=== PATIENT | female | born 1970 | race Caucasian/White ===

== ENCOUNTER 2024-01-14 06:00 | Day surgery (SDC) | payer OTHER, BC ==
[2024-01-12 15:15] VITALS: BMI 43.1
[2024-01-14 12:33] VITALS: TEMP 98.2
[2024-01-14 12:50] VITALS: RESP 23
[2024-01-14 13:09] VITALS: BP 121/68; PULSE 71
== END 2024-01-14 13:15 | disposition home or self-care (01) ==
LOC: JASU-ENDO 06:00
PROVIDERS: ATTEND Internal Medicine Gastroenterology
PROC: 0DBP8ZX Excision of Rectum, Via Natural or Artificial Opening Endoscopic, Diagnostic (ICD-10-PCS; 2024-01-14)
PROC: 0DBN8ZX Excision of Sigmoid Colon, Via Natural or Artificial Opening Endoscopic, Diagnostic (ICD-10-PCS; 2024-01-14)
PROC: 0DBL8ZX Excision of Transverse Colon, Via Natural or Artificial Opening Endoscopic, Diagnostic (ICD-10-PCS; principal; 2024-01-14 12:00)
DX: Z12.11 Encounter for screening for malignant neoplasm of colon (principal); C20 Malignant neoplasm of rectum; K63.5 Polyp of colon; K64.8 Other hemorrhoids; Z83.719 Family history of colon polyps, unspecified
CPT/HCPCS: 88305-TC; 88341-TC; 88342-TC

== ENCOUNTER 2024-05-04 03:47 | Day surgery (SDC) | payer OTHER, BC ==
[2024-05-01 12:48] VITALS: BMI 41.3
[2024-05-04] MEDS ORDERED: ONDANSETRON 4 MG/2 ML VIAL IVPUSH PRN (08:35)
[2024-05-04] MEDS ORDERED: oxyCODONE HCL 5 MG TABLET PO PRN (08:35)
[2024-05-04] MEDS ORDERED: ACETAMINOPHEN 500 MG TABLET (FP) PO ONE (08:36)
[2024-05-04] MEDS ORDERED: HEPARIN NA (PORCINE) 5,000 UNITS/ML 1ML VIAL ONE (10:29)
[2024-05-04] MEDS ORDERED: LIDOCAINE HCL 1%, 10 MG/ML (20ML VIAL) ONE (10:29)
[2024-05-04] MEDS ORDERED: MIDAZOLAM HCL 2 MG/2 ML SINGLE DOSE VIAL ONE (11:01)
[2024-05-04] MEDS: ceFAZolin SODIUM 1 GM VIAL IVPB ONE (11:07)
[2024-05-04] MEDS ORDERED: ceFAZolin SODIUM 1 GM VIAL ONE (11:07)
[2024-05-04] MEDS: LIDOCAINE 1% P/F 10 MG/ML VIAL INF ONE (11:26)
[2024-05-04] MEDS ORDERED: ACETAMINOPHEN 325 MG TABLET (FP) PO PRN (11:43)
[2024-05-04 13:44] VITALS: RESP 16
[2024-05-04 14:23] VITALS: BP 130/80; PULSE 72; TEMP 97.5
== END 2024-05-04 14:30 | disposition home or self-care (01) ==
LOC: JASU-SURG 03:47
PROVIDERS: ATTEND Surgery
PROC: 02HV33Z Insertion of Infusion Device into Superior Vena Cava, Percutaneous Approach (ICD-10-PCS; 2024-05-04)
PROC: 0JH63XZ Insertion of Tunneled Vascular Access Device into Chest Subcutaneous Tissue and Fascia, Percutaneous Approach (ICD-10-PCS; principal; 2024-05-04 09:30)
DX: C20 Malignant neoplasm of rectum (principal)
CPT/HCPCS: 71045-TC-FY; 76000-TC-FY; 94760; J1644

== ENCOUNTER 2024-05-09 08:51 | Day surgery (SDC) | payer OTHER, BC ==
[2024-05-09 09:45] LABS: BASO % 0.7 % (0-2.0); EOS % 1.7 % (0-4.5); HEMATOCRIT 38.1 % (32.4-45.2); HEMOGLOBIN 13.2 GM/dL (10.7-15.3); LYMPH % 15.1 % (8-40); MCHC 34.5 g/dl (32.0-36.0); MEAN CELL VOLUME 95.4 fl (80-96); MEAN PLT VOLUME 6.6 fl (7.5-11.1); MONO % 6.3 % (3.8-10.2); NEUT % 76.2 % (42.8-82.8); PLATELET COUNT 341 10^3/uL (134-434); RDW 15.7 % (11.6-15.6)
[2024-05-09 09:59] LABS: POTASSIUM 4.7 mmol/L (3.5-5.1)
[2024-05-09 10:04] LABS: CALCIUM 9.1 mg/dL (8.5-10.1)
[2024-05-09 10:05] LABS: ALBUMIN 3.5 g/dl (3.4-5.0); BLOOD UREA NITROGEN 19.7 mg/dL (7-18); MAGNESIUM 2.4 mg/dL (1.8-2.4)
[2024-05-09 10:08] LABS: CREATININE 0.7 mg/dL (0.55-1.3)
[2024-05-09 10:09] LABS: BILIRUBIN,TOTAL 0.5 mg/dL (0.2-1); TOT PROT 6.6 g/dl (6.4-8.2)
[2024-05-09] MEDS: SODIUM CHLORIDE 250 ML IV ONE (10:42)
[2024-05-09] MEDS: PALONOSETRON HCL 0.25 MG/5 ML VIAL IVPUSH ONE (10:47)
[2024-05-09] MEDS: DEXAMETHASONE SODIUM PHOSPHATE 10 MG in SODIUM CHLORIDE 50 ML IVPB ONE (10:48)
[2024-05-09] MEDS: LEUCOVORIN INJECTION - 844 MG in DEXTROSE 5%-WATER - 250 ML IVPB ONE (11:35)
[2024-05-09] MEDS: OXALIplatin 180 MG in DEXTROSE 5%-WATER - 500 ML IV ONE (11:36)
[2024-05-09] MEDS: FLUOROURACIL 500 MG/10 ML VIAL IVPUSH ONE (13:49)
[2024-05-09] MEDS: PORTA CATH FLUSH 10 ML IVPUSH PRN (13:49)
[2024-05-09] MEDS: FLUOROURACIL 5,075 MG in SODIUM CHLORIDE 36.5 ML CP ONE (13:49)
[2024-05-09] MEDS: diphenhydrAMINE HCL 25 MG CAPSULE (FP) PO ONE (13:49)
[2024-05-09 18:03] VITALS: BP 123/81; PULSE 73; RESP 20; TEMP 97.8
== END 2024-05-09 14:15 | disposition home or self-care (01) ==
LOC: JONCCHEMO 08:51 → J7W 08:59 → JONCCHEMO 14:15
PROVIDERS: ATTEND Internal Medicine Hematology & Oncology
DX: Z51.11 Encounter for antineoplastic chemotherapy (principal); C20 Malignant neoplasm of rectum
CPT/HCPCS: 36415; 80053; 83735; 85025; 96367; 96368; 96375; 96411; 96413; 96415; G0498; J9190; J9263

== ENCOUNTER 2024-05-23 08:59 | Day surgery (SDC) | payer OTHER, BC ==
[2024-05-23] MEDS: SODIUM CHLORIDE 250 ML IV ONE (09:32)
[2024-05-23] MEDS: PALONOSETRON HCL 0.25 MG/5 ML VIAL IVPUSH ONE (09:52)
[2024-05-23] MEDS: DEXAMETHASONE SODIUM PHOSPHATE 10 MG in SODIUM CHLORIDE 50 ML IVPB ONE (09:52)
[2024-05-23] MEDS ORDERED: LORazepam 2 MG/ML SDV VIAL ONE (10:10)
[2024-05-23] MEDS: LEUCOVORIN INJECTION - 844 MG in DEXTROSE 5%-WATER - 250 ML IVPB ONE (10:10)
[2024-05-23] MEDS: OXALIplatin 180 MG in DEXTROSE 5%-WATER - 500 ML IV ONE (10:10)
[2024-05-23] MEDS: FLUOROURACIL 500 MG/10 ML VIAL IVPUSH ONE (12:44)
[2024-05-23] MEDS: FLUOROURACIL 5,075 MG in SODIUM CHLORIDE 36.5 ML CP ONE (12:45)
[2024-05-23 17:00] VITALS: BP 106/63; PULSE 69; RESP 20; TEMP 98.1
[2024-05-23] MEDS ORDERED: PORTA CATH FLUSH 10 ML IVPUSH PRN (17:00)
== END 2024-05-23 13:00 | disposition home or self-care (01) ==
LOC: JONCCHEMO 08:59 → J7W 09:00 → JONCCHEMO 13:00
PROVIDERS: ATTEND Internal Medicine Hematology & Oncology
PROC: 3E04305 Introduction of Other Antineoplastic into Central Vein, Percutaneous Approach (ICD-10-PCS; principal; 2024-05-23)
PROC: 3E043GC Introduction of Other Therapeutic Substance into Central Vein, Percutaneous Approach (ICD-10-PCS; 2024-05-23)
PROC: 3E04305 Introduction of Other Antineoplastic into Central Vein, Percutaneous Approach (ICD-10-PCS; 2024-05-23)
DX: Z51.11 Encounter for antineoplastic chemotherapy (principal); C20 Malignant neoplasm of rectum
CPT/HCPCS: 96367; 96368; 96409; 96413; 96417; G0498; J9190; J9263

== ENCOUNTER 2024-06-06 09:15 | Day surgery (SDC) | payer OTHER, BC ==
[2024-06-06] MEDS: SODIUM CHLORIDE 250 ML IV ONE (09:48)
[2024-06-06] MEDS: PALONOSETRON HCL 0.25 MG/5 ML VIAL IVPUSH ONE (10:28)
[2024-06-06] MEDS: DEXAMETHASONE SODIUM PHOSPHATE 10 MG in SODIUM CHLORIDE 50 ML IVPB ONE (10:29)
[2024-06-06] MEDS: LEUCOVORIN INJECTION - 844 MG in DEXTROSE 5%-WATER - 250 ML IVPB ONE (10:58)
[2024-06-06] MEDS: OXALIplatin 180 MG in DEXTROSE 5%-WATER - 500 ML IV ONE (11:04)
[2024-06-06] MEDS: FLUOROURACIL CP ONE (13:17)
[2024-06-06] MEDS: FLUOROURACIL 500 MG/10 ML VIAL IVPUSH ONE (13:17)
[2024-06-06] MEDS: SODIUM CHLORIDE CP ONE (13:17)
[2024-06-06 17:20] VITALS: BP 118/57; PULSE 66; RESP 18; TEMP 98
== END 2024-06-06 13:30 | disposition home or self-care (01) ==
LOC: JONCCHEMO 09:15 → J7W 09:35 → JONCCHEMO 13:30
PROVIDERS: ATTEND Internal Medicine Hematology & Oncology
PROC: 3E04305 Introduction of Other Antineoplastic into Central Vein, Percutaneous Approach (ICD-10-PCS; principal; 2024-06-06)
PROC: 3E043GC Introduction of Other Therapeutic Substance into Central Vein, Percutaneous Approach (ICD-10-PCS; 2024-06-06)
DX: Z51.11 Encounter for antineoplastic chemotherapy (principal); C20 Malignant neoplasm of rectum
CPT/HCPCS: 96367; 96368; 96411; 96413; 96417; G0498; J9190; J9263

== ENCOUNTER 2024-06-08 12:43 | Day surgery (SDC) | payer OTHER, BC ==
[2024-06-08] MEDS ORDERED: PORTA CATH FLUSH 10 ML IVPUSH PRN (17:03)
[2024-06-08 17:04] VITALS: BP 131/73; PULSE 82; RESP 18; TEMP 98.2
== END 2024-06-08 13:15 | disposition home or self-care (01) ==
LOC: JONCCHEMO 12:43 → J7W 12:44 → JONCCHEMO 13:15
PROVIDERS: ATTEND Internal Medicine Hematology & Oncology
DX: Z53.8 Procedure and treatment not carried out for other reasons (principal)

== ENCOUNTER 2024-06-20 09:45 | Day surgery (SDC) | payer OTHER, BC ==
[2024-06-20] MEDS: SODIUM CHLORIDE 250 ML IV ONE (10:32)
[2024-06-20] MEDS: DEXAMETHASONE SODIUM PHOSPHATE 10 MG in SODIUM CHLORIDE 50 ML IVPB ONE (11:04)
[2024-06-20] MEDS: PALONOSETRON HCL 0.25 MG/5 ML VIAL IVPUSH ONE (11:04)
[2024-06-20] MEDS: OXALIplatin 180 MG in DEXTROSE 5%-WATER - 500 ML IV ONE (11:46)
[2024-06-20] MEDS: LEUCOVORIN INJECTION - 844 MG in DEXTROSE 5%-WATER - 250 ML IVPB ONE (11:51)
[2024-06-20] MEDS: PORTA CATH FLUSH 10 ML IVPUSH PRN (13:58)
[2024-06-20] MEDS: FLUOROURACIL 500 MG/10 ML VIAL IVPUSH ONE (13:59)
[2024-06-20] MEDS: FLUOROURACIL 5,075 MG in SODIUM CHLORIDE 4.3 ML CP ONE (13:59)
[2024-06-20 16:17] VITALS: BP 109/62; PULSE 78; RESP 20; TEMP 97.8
== END 2024-06-20 14:15 | disposition home or self-care (01) ==
LOC: JONCCHEMO 09:45
PROVIDERS: ATTEND Internal Medicine Hematology & Oncology
PROC: 3E04305 Introduction of Other Antineoplastic into Central Vein, Percutaneous Approach (ICD-10-PCS; principal; 2024-06-20)
PROC: 3E043GC Introduction of Other Therapeutic Substance into Central Vein, Percutaneous Approach (ICD-10-PCS; 2024-06-20)
DX: Z51.11 Encounter for antineoplastic chemotherapy (principal); C20 Malignant neoplasm of rectum
CPT/HCPCS: 96361; 96374; 96375; 96411; 96415; G0498; J9190; J9263

== ENCOUNTER 2024-06-22 11:13 | Day surgery (SDC) | payer OTHER, BC ==
[2024-06-22] MEDS: PORTA CATH FLUSH 10 ML IVPUSH PRN (12:15)
[2024-06-22 17:13] VITALS: BP 125/56; PULSE 85; RESP 20; TEMP 98.1
== END 2024-06-22 12:15 | disposition home or self-care (01) ==
LOC: JONCCHEMO 11:13
PROVIDERS: ATTEND Internal Medicine Hematology & Oncology
DX: Z53.8 Procedure and treatment not carried out for other reasons (principal)

== ENCOUNTER 2024-07-04 10:00 | Day surgery (SDC) | payer OTHER, BC ==
[2024-07-04] MEDS: SODIUM CHLORIDE 250 ML IV ONE (09:20)
[2024-07-04] MEDS: DEXAMETHASONE SODIUM PHOSPHATE 10 MG in SODIUM CHLORIDE 50 ML IVPB ONE (09:58)
[2024-07-04] MEDS: PALONOSETRON HCL 0.25 MG/5 ML VIAL IVPUSH ONE (10:00)
[2024-07-04] MEDS: LEUCOVORIN INJECTION - 876 MG in DEXTROSE 5%-WATER - 250 ML IVPB ONE (11:21)
[2024-07-04] MEDS: SODIUM CHLORIDE CP ONE (13:46)
[2024-07-04] MEDS: FLUOROURACIL CP ONE (13:46)
[2024-07-04] MEDS: FLUOROURACIL 500 MG/10 ML VIAL IVPUSH ONE (13:46)
[2024-07-04 16:14] VITALS: BP 109/56; PULSE 66; RESP 20; TEMP 98
== END 2024-07-04 14:15 | disposition home or self-care (01) ==
LOC: JONCCHEMO 10:00 → J7W 10:58 → JONCCHEMO 14:15
PROVIDERS: ATTEND Internal Medicine Hematology & Oncology
DX: Z51.11 Encounter for antineoplastic chemotherapy (principal); C20 Malignant neoplasm of rectum
CPT/HCPCS: 96367; 96368; 96375; 96411; 96413; 96415; G0498; J9190; J9263

== ENCOUNTER 2024-08-03 12:14 | Day surgery (SDC) | payer OTHER, BC ==
[2024-08-03] MEDS: PORTA CATH FLUSH 10 ML IVPUSH PRN (12:15)
[2024-08-03 14:16] VITALS: BP 141/70; PULSE 78; RESP 20; TEMP 98.1
== END 2024-08-03 12:25 | disposition home or self-care (01) ==
LOC: JONCCHEMO 12:14 → J7W 12:15 → JONCCHEMO 12:25
PROVIDERS: ATTEND Internal Medicine Hematology & Oncology
DX: Z53.8 Procedure and treatment not carried out for other reasons (principal)

== ENCOUNTER 2024-09-26 08:55 | Day surgery (SDC) | payer OTHER, BC ==
[2024-09-26] MEDS: SODIUM CHLORIDE 250 ML IV ONE (09:07)
[2024-09-26] MEDS: DEXAMETHASONE SODIUM PHOSPHATE 10 MG in SODIUM CHLORIDE 50 ML IVPB ONE (09:52)
[2024-09-26] MEDS: PALONOSETRON HCL 0.25 MG/5 ML VIAL IVPUSH ONE (09:53)
[2024-09-26] MEDS: LEUCOVORIN IVPB ONE (10:23)
[2024-09-26] MEDS: DEXTROSE 5% IVPB ONE (10:23)
[2024-09-26] MEDS: WATER IVPB ONE (10:23)
[2024-09-26] MEDS: FLUOROURACIL 500 MG/10 ML VIAL IVPUSH ONE (12:42)
[2024-09-26] MEDS: FLUOROURACIL CP ONE (12:44)
[2024-09-26] MEDS: SODIUM CHLORIDE CP ONE (12:44)
[2024-09-26 16:52] VITALS: RESP 18; TEMP 98.2
[2024-09-26 16:57] VITALS: BP 138/66; PULSE 74
== END 2024-09-26 13:00 | disposition home or self-care (01) ==
LOC: JONCCHEMO 08:55 → J7W 10:05 → JONCCHEMO 13:00
PROVIDERS: ATTEND Internal Medicine Hematology & Oncology
DX: Z51.11 Encounter for antineoplastic chemotherapy (principal); C20 Malignant neoplasm of rectum
CPT/HCPCS: 96367; 96368; 96375; 96411; 96413; G0498; J9190; J9263

== ENCOUNTER 2024-09-28 11:12 | Day surgery (SDC) | payer OTHER, BC ==
[2024-09-28] MEDS: PORTA CATH FLUSH 10 ML IVPUSH PRN (11:30)
[2024-09-28 15:07] VITALS: BP 126/54; PULSE 84; RESP 18; TEMP 98.7
== END 2024-09-28 11:45 | disposition home or self-care (01) ==
LOC: JONCCHEMO 11:12 → J7W 11:14 → JONCCHEMO 11:45
PROVIDERS: ATTEND Internal Medicine Hematology & Oncology
PROC: 3E033GC Introduction of Other Therapeutic Substance into Peripheral Vein, Percutaneous Approach (ICD-10-PCS; principal; 2024-09-28)
DX: Z53.8 Procedure and treatment not carried out for other reasons (principal)